=== PATIENT | male | born 1960 | race Caucasian/White ===

== ENCOUNTER 2022-09-13 20:59 | Emergency (ER) | payer OTHER, SELFPAY ==
--- NOTE | ~2022-09-13 | CT_ITS ---
EXAMINATION: CT abdomen pelvis wo con DATE: 09/13/2022 22:07 INDICATION: right flank TECHNIQUE: Computed tomography (CT) of the abdomen and pelvis was performed without intravenous contr ast. Automated exposure control and iterative reconstruction technique were employed. The dose-length product was 552.19 mGy-cm. COMPARISON: None. FINDINGS: Lower thorax: Mild dependent atelectasis in the right lower lobe Liver: Mildly enlarged. Diffuse fatty infiltration. Subcentimeter hypodensities in the left lobe, too small to characterize but most likely represent cysts or hemangiomas. Biliary/Gallbladder: Gallbladder is normal. No bile duct dilation. Pancreas: No mass or duct dilation. Spleen: Normal. Adrenals:No mass. Kidneys: Moderate bilateral perinephric stranding. No mass, stone, or hydronephrosis. GI tract: Distal sigmoid and rectal wall edema with surrounding inflammatory change. No small or larg e bowel dilation. Appendix not visualized. Diverticulosis without diverticulitis. Mesentery/Peritoneum: No ascites, mass, or free air. Central mesenteric edema, a nonspecific finding. Retroperitoneum: No mass. Pelvis: Prominent bladder wall thickening with surrounding inflammatory change. Prostatomegaly. Soft Tissues: Uncomplicated appearing umbilical and bilateral fat-containing inguinal hernias. Bones: No acute osseous finding. IMPRESSION: Hepatomegaly with steatosis. Distal colitis/proctitis. Urinary bladder wall thickening and inflammati on, may represent chronic outlet obstruction or cystitis, correlate with urinalysis. Reviewed, dictated and finalized at location [facility]. IMPRESSION: Hepatomegaly with steatosis. Distal colitis/proctitis. Urinary bladder wall thi ckening and inflammation, may represent chronic outlet obstruction or cystitis, correlate with urinalysis.
[2022-09-13 21:14] VITALS: BP 147/95; PULSE 63; RESP 18; TEMP 36.6; O2SAT 98
[2022-09-13 22:11] LABS: Basophils Absolute Auto 0.1 K/mm3 (0.0-0.1); Basophils Percent Auto 1.1 % (0.2-1.2); Eosinophils Percent Auto 0.4 % (0-4.4); Hematocrit 43.6 % (42.0-52.0); Hemoglobin 14.7 g/dL (14.0-18.0); Immature Granulocyte Absolute 0.01 K/mm3 (0.00-0.031); Immature Granulocyte Percent A 0.2 % (0-0.5); Lymphocytes Absolute Auto 1.68 K/mm3 (0.9-3.2); Mean Corpuscular HGB Conc 33.7 g/dl (32-36); Mean Corpuscular Volume 112.7 fl (80-100); Mean Platelet Volume 9.7 fl (7.4-10.4); Monocytes Absolute Auto 0.5 K/mm3 (0.1-0.6); Monocytes Percent Auto 8.2 % (2.6-8.5); Neutrophils Absolute Auto 3.4 K/mm3 (1.3-6.7); Neutrophils Percent Auto 60.1 % (45.5-73.1); Platelet Count Result 173 k/mm3 (150-375); Red Blood Count 3.87 M/mm3 (4.6-6.20); Red Cell Distribution Width 14.2 % (11.5-14.5); White Blood Count 5.6 K/mm3 (4.5-10.0)
--- NOTE | 2022-09-13 22:16 | ED.ABDPAIN ---
HPI - Abdominal Pain General Chief Complaint: Abdominal Pain Stated Complaint: lower abdominal pain Time Seen by Provider: 09/13/22 21:24 Source: patient Mode of arrival: ambulatory Limitations: no limitations History of Present Illness HPI narrative: This is a 62-year-old male who presents to the ED via EMS with chief complaint of lower abdominal pain onset times several weeks. Patient states that he had severe pain today so he called the ambulance. When I interviewed the patient he states that the pain is completely resolved. He states he has been seen a couple of different times in the past few weeks in a different ER in [place] for apparent diverticulitis. He states that this and feels like that is better. Also reports constipation x7 days. He does state that his last bowel movement was 7 or 8 days ago. He is passing gas. Denies any nausea or vomiting. Denies diarrhea, fevers, chills, chest pain, shortness of breath, urinary symptoms. Social history of cigarette and alcohol use. When asked the patient how much she has had to drink today, he is unable to tell me. Related Data Allergies Allergy/AdvReac Type Severity Reaction Status Date / Time No Known Allergies Allergy Verified 09/14/22 01:56 Review of Systems Review of Systems: CONSTITUTIONAL: Denies fever, chills, or sweats. EYES: Denies visual changes, redness, or discharge. ENT: Denies rhinorrhea, congestion, sore throat, or otalgia. CARDIOVASCULAR: Denies chest pain, palpitations, or edema. RESPIRATORY: Denies cough or dyspnea. GASTROINTESTINAL: See HPI GENITOURINARY: Denies dysuria or hematuria. SKIN: Denies rash or itching. MUSCULOSKELETAL: Denies back pain, joint pain, or myalgia. NEUROLOGIC: Denies headache, numbness, dizziness, or weakness. PSYCHIATRIC: Denies anxiety or depression. Exam Narrative: GENERAL: Well-appearing, well-nourished, and in no acute distress. Clinically intoxicated. HEAD: Normocephalic, atraumatic. EYES: PERRLA and EOMI. ENT: Nares clear, no rhinorrhea or epistaxis. Mucous membranes moist. Oropharynx without tonsillar hypertrophy exudate or other lesions. NECK: Supple. No adenopathy or masses. CHEST: No respiratory distress. Clear to auscultation. No wheezes rales or rhonchi HEART: Regular rate and rhythm. No murmur heard. Normal peripheral pulses. ABDOMEN: Right flank tenderness present. Abdomen is otherwise benign. Soft, nontender, nondistended, normal active bowel sounds. Negative peritoneal signs. MSK: Normal range of motion. No edema. SKIN: Warm, dry, no rash. NEURO: Alert and oriented x3. No focal deficits. PSYCH: Normal mood and affect. Course Vital Signs Vital signs: Vital Signs Temperature 97.9 F 09/13/22 21:14 Pulse Rate 63 09/13/22 21:14 Respiratory Rate 18 09/13/22 21:14 Blood Pressure 147/95 H 09/13/22 21:14 Pulse Oximetry 98 09/13/22 21:14 Temperature 97.9 F 09/13/22 21:14 Pulse Rate 63 09/13/22 21:14 Respiratory Rate 18 09/13/22 21:14 Blood Pressure 147/95 H 09/13/22 21:14 Pulse Oximetry 98 09/13/22 21:14 MDM - Abdominal Pain MDM Narrative Medical decision making narrative: This is a 62-year-old male who presents to the ED with chief complaint of lower abdominal pain onset x4 weeks. Patient has been seen for this in the past and given antibiotics for diverticulitis. His vitals are stable. Afebrile. No white count on his CBC. UA does show some blood and patient had some right flank tenderness, it is possible that he had some pain from a stone and passed it. He is not having any more pain here. His CT scan does show evidence of colitis with proctitis, which could also be causative of his pain. No bloody stools but he does have constipation. Will prescribe an extended course of Cipro and Flagyl for this possible proctitis. Also given instructions regarding MiraLAX and prescription for Colace for his constipation. Patient did come in clinically intoxi
[2022-09-13 22:26] LABS: Appearance Urine Clear (Clear); Bacteria Urine None Seen /hpf; Bilirubin Urine Negative (Negative); Blood Urine 1+ (Negative); Color Urine Yellow (Yellow); Glucose Urine UA Negative (Negative); Ketones Urine Negative (Negative); Leukocyte Esterase Ur Negative LEU/UL (Negative); Nitrate Urine Negative (Negative); Non Pathogenic Casts 0-2; Protein Urine 2+ mg/dL (Negative); Specific Grav Ur 1.014 (1.001-1.035); Squamous Epithelial Cell Urine None seen /hpf (Few); WBC Urine 0-5 /hpf; pH Urine 7.5 (5.0-9.0)
[2022-09-13 22:51] LABS: Add Urine Microscopic? YES
[2022-09-13 22:55] LABS: Platelet Estimate Adequate (Adequate)
[2022-09-13 22:56] LABS: Anisocytosis 1+ (NORMAL)
[2022-09-13 22:57] LABS: Schistocytes None Seen (NORMAL)
[2022-09-13 23:19] LABS: Alanine Aminotransferase 69 U/L (6-50); Albumin Level 4.2 g/dL (3.5-5.1); Alkaline Phosphatase 52 U/L (38-126); Anion Gap 8 mmol/L (8-16); Aspartate Amino Transferase 109 U/L (17-59); Bilirubin,Total 0.5 mg/dL (0.2-1.3); Blood Urea Nitrogen 11 mg/dL (9-20); Calcium 7.8 mg/dL (8.4-10.2); Carbon Dioxide 29 mmol/L (22-30); Chloride 109 mmol/L (98-107); Estimated Glomerular Filt Rate > 60; Glucose 95 mg/dL (65-110); Potassium 3.8 mmol/L (3.4-5.0); Sodium 146 mmol/L (137-145)
[2022-09-14] MEDS: AMOXICILLIN/CLAVULANATE K 875-125 MG TAB 1 TABLET PO (00:35)
[2022-09-14] MEDS: SODIUM CHLORIDE 0.9% IV 1,000 ML 999 ML IV CONT (00:36)
== END 2022-09-14 01:55 | disposition home or self-care (01) ==
PROVIDERS: Emergency Provider Physician Assistant
DX: K52.9 Noninfective gastroenteritis and colitis, unspecified (principal)
CPT/HCPCS: 36415; 74176; 80053; 81001; 85025; 96360; 99284; A9270; J7030